=== PATIENT | female | born 2000 | race African-American/Black ===

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

== ENCOUNTER 2024-03-09 18:59 | Emergency (ER) | payer BC ==
[2024-03-09] MEDS ORDERED: Ketorolac Tromethamine 30 MG (1 mL) VIAL ONE (20:50)
== END 2024-03-09 21:25 | disposition home or self-care (01) ==
LOC: ERS 18:59
DX: S92.424A Nondisplaced fracture of distal phalanx of right great toe, initial encounter for closed fracture (principal); X58.XXXA Exposure to other specified factors, initial encounter
CPT/HCPCS: 96372; J1885